=== PATIENT | male | born 1960 | race Caucasian/White ===

== ENCOUNTER 2023-10-14 12:26 | Outpatient (CLI) | payer OTHER | END 2023-10-14 12:36 | disposition home or self-care (01) | LOC: SONOGRAMA 12:26 | PROVIDERS: ATTEND Urology | DX: N40.1 Benign prostatic hyperplasia with lower urinary tract symptoms (principal); I86.1 Scrotal varices ==

== ENCOUNTER 2023-11-02 08:56 | Outpatient (CLI) | payer OTHER | END 2023-11-02 08:57 | disposition home or self-care (01) | LOC: SONOGRAMA 08:56 | PROVIDERS: ATTEND Specialist | DX: D17.0 Benign lipomatous neoplasm of skin and subcutaneous tissue of head, face and neck (principal) ==

== ENCOUNTER 2024-03-01 05:55 | Day surgery (SDC) | payer OTHER ==
[2024-02-23 10:06] VITALS: BP 147/102
[2024-02-23 11:31] LABS: HEMATOCRIT 44.6 % (39.0-48.0); HEMOGLOBIN 15.6 g/dL (13-16.00); MEAN CORPUSCULAR HEMOGLOBIN 29.7 pg (27.00-32.0); MEAN CORPUSCULAR HGB CONC 34.9 g/dl (32.0-36.0); PLATELET COUNT 194 K/uL (150-450); RED BLOOD COUNT 5.24 M/uL (4.00-6.00); RED CELL DISTRIBUTION WIDTH 15.2 % (11.5-14.5)
[2024-02-23 11:40] LABS: PARTIAL THROMBOPLASTIN TIME 30.2 SECONDS (22.0-34.0); PROTHROMBIN TIME 10.9 SECONDS (9.0-11.5)
[2024-02-23 11:41] LABS: URINE APPEARANCE Clear; URINE BILIRRUBIN Negative (NEGATIVE); URINE BLOOD Negative; URINE COLOR Yellow; URINE GLUCOSE Negative (NEGATIVE); URINE KETONE Negative (NEGATIVE); URINE LEUKOCYTE Negative; URINE NITRATE Negative; URINE PROTEIN Negative (NEGATIVE); URINE UROBILINOGEN 0.2 E.U./dl
[2024-02-23 11:46] LABS: URINE RBC 16.3 uL (0.0-20.8)
[2024-02-23 11:53] LABS: ALBUMIN 3.7 gm/dL (3.4-5.0); BILIRUBIN TOTAL 0.59 mg/dL (0.3-1.2); CALCIUM 8.9 mg/dL (8.5-10.1); CREATININE SERUM 1.03 mg/dL (0.70-1.30); GFR 72.48; GLOBULINA 3.7 G/DL (2.4-3.5); POTASSIUM 4.9 mEq/L (3.5-5.1); TOTAL PROTEIN 7.4 gm/dL (6.4-8.2)
[2024-02-23 12:15] LABS: URINE BACTERIA 1.2 uL (0.0-1933); URINE WBC 1.2 uL (0.0-23.2)
[~2024-03-01] VITALS: Ht 175.3 cm; Wt 106.6 kg
[~2024-03-01 05:55] MED LIST: ATIVAN0.5 M1 PO; COZAAR25 MG; ECOTRIN81 MG PO; FLUCONAZOL40 MG/1 ML; NEURONTIN300 MG PO; PROAIR RESPICL90 MCG IH; PROTONIX40 MG PO; ZOLOFT50 MG PO
[2024-03-01] MEDS ORDERED: CEFAZOLIN SODIUM 1,000 MG VIAL ONE ×2 (09:01→11:27)
[2024-03-01] MEDS ORDERED: LIDOCAINE HCL 1% 10ML VIAL ONE (09:35)
[2024-03-01] MEDS ORDERED: LIDOCAINE HCL 1%/EPINEPHRINE 20ML VIAL IJ ONE (09:35)
[2024-03-01] MEDS ORDERED: LIDOCAINE HCL 1% 20 ML VIAL IJ ONE (10:08)
[2024-03-01] MEDS ORDERED: FAMOTIDINE/PF 20 MG/10 ML SYRINGE IV SCH (11:15)
[2024-03-01] MEDS ORDERED: CEFAZOLIN SODIUM 1,000 MG VIAL IV SCH (11:15)
[2024-03-01] MEDS ORDERED: FAMOTIDINE/PF 20 MG/2 ML VIAL ONE (11:27)
== END 2024-03-01 12:50 | disposition home or self-care (01) ==
LOC: CIR.AMB 05:55
PROVIDERS: ATTEND Specialist
DX: D21.0 Benign neoplasm of connective and other soft tissue of head, face and neck (principal); I10 Essential (primary) hypertension; J30.1 Allergic rhinitis due to pollen; Z91.011 Allergy to milk products